=== PATIENT | female | born 1995 | race Caucasian/White ===

== ENCOUNTER 2019-10-23 22:00 | Emergency (ER) | payer MEDICAID, SELFPAY ==
[2019-10-23 22:21] VITALS: BP 142/85; PULSE 104; RESP 18; TEMP 36.8; O2SAT 99; BMI 23.3
--- NOTE | 2019-10-23 22:37 | ED_ITS ---
HPI - Abdominal Pain General: Chief Complaint: Abdominal Pain Stated Complaint: painful urination Time Seen by Provider: 10/23/19 22:29 Source: patient Mode of arrival: ambulatory Limitations: no limitations History of Present Illness: HPI narrative: 24-year-old female who states she has had suprapubic pain along with dysuria over the last 3 days. She states it is gradually worsened. She has a history of UTIs but states her pain is worsened than her typical UTI. She denies any vomiting but has had nausea. Denies fever. MD elicited complaint: abdominal pain Pertinent past history: none Onset (ago): day(s) Pain Consistency: constant Location: Periumbilical Severity: moderate Quality: stabbing Radiation: none Exacerbating factors: nothing Relieving factors: nothing Associated Symptoms: Reports dysuria and nausea; Denies chills, diarrhea, fever(s) and vomiting Related Data: Date of Last Menstrual Period: 10/16/19 Review of Systems Const: Denies: fever(s), chills, body aches or change in appetite Eyes: Denies: blurry vision or eye discomfort ENMT: Denies: throat pain or dental pain Card: Denies: chest pain Resp: Denies: dyspnea GI: Reports: abdominal pain and nausea; Denies: vomiting or diarrhea : Reports: dysuria Musc: Denies: neck pain or back pain Skin/Breast: Denies: rash Neuro: Denies: headache(s) Psych: Denies: depression Seth/Lymph: Denies: easy bruising All/Imm: Denies: urticaria PFSH ED PFSH: Social History Smoking and tobacco status: never smoked Female Reproductive History: Date of last menstrual period: 10/16/19 Physical Exam Const: COMMON NORMALS: no acute distress, patient oriented x3 and healthy appearing HENMT: COMMON NORMALS: normocephalic and atraumatic HEAD & SCALP: normocephalic and atraumatic Eye: COMMON NORMALS: Equal, round and reactive pupils present and EOMs intact bilaterally PUPIL: Yes Equal, round and reactive pupils present Neck/C-Spine: COMMON NORMALS: full ROM and supple Chest: COMMONS NORMALS: normal inspection of the chest and normal palpation of entire chest wall Resp: COMMON NORMALS: normal respiratory effort, No retractions, No use of accessory muscles and clear to auscultation bilaterally AUSCULTATION: clear to auscultation bilaterally Cardio: COMMON NORMALS: regular rate, regular rhythm and No murmurs present (Cardio) RATE: regular rate RHYTHM: regular rhythm GI: COMMON NORMALS: Normal to inspection, nondistended, normoactive bowel sounds present, Soft to palpation and no masses PALPATION: Yes Soft to palpation and Yes Tenderness to palpation present (GI) Details: LLQ and RLQ Extremity: COMMON NORMALS: normal to inspection and full ROM Neuro: COMMON NORMALS: patient oriented x3, moves all extremities and no focal motor deficits Psych: COMMON NORMALS: mental status grossly normal, Normal thought process present and cooperative THOUGHT PROCESS: Normal thought process present Skin: COMMON NORMALS: no rashes or lesions noted and no wounds GENERAL SKIN EXAM: no rashes or lesions noted Course Vital Signs: Vital signs: Vital Signs Temperature 98.3 F 10/23/19 22:21 Pulse Rate 111 H 10/24/19 01:00 Respiratory Rate 17 10/24/19 01:00 Blood Pressure 111/67 10/24/19 01:00 Pulse Oximetry 98 10/24/19 01:00 MDM - Abdominal Pain MDM Narrative: Medical decision making narrative: Patient presents here with abdominal pain likely from urinary tract infection. Patient CT scan here is normal and she has no signs of PID. Patient's pain is improved and her lab work is normal. We will place her on antibiotics and she is stable for discharge. Is to follow-up with primary care doctor in 3 to 5 days return if worsening. Lab Data: Labs: Lab Results 10/23/19 10/23/19 10/23/19 Range/Units 22:19 22:19 22:42 WBC 12.0 H (4.0-10.0) 10^3/ uL RBC 4.29 (4.1-5.3) 10^6/u L Hgb 13.4 (11.5-15.3) g/dL Hct 40.2 (37.0-47.0) % MCV 93.7 (81-99) fL MCH 31.2 (28.0-34.0) pg MCHC 33.3 (30.0-36.0) g/dL RDW 11.7 L (12.1-15.1) % Plt Count 211 (130-400) 10^3/c mm MPV 10.7 H (7.4-10.4) fL Neut % (Auto) 62.5 % Lymph % (Auto) 27.4 % Bulloch % (Auto) 8.4 % Eos % (Auto) 1.1 % Baso % (Auto) 0.3 % Neut # (Auto) 7.5 (1.8-7.7) 10^3/u L Lymph # (Auto) 3.3 (0.8-4.8) 10^3/u L Bulloch # (Auto) 1.0 H (0.2-0.9) 10^3/u L Eos # (Auto) 0.1 (0.0-0.8) 10^3/u L Baso # (Auto) 0.0 (0.0-0.1) 10^3/u L Nucleated RBC % (a uto) 0 % Nucleated RBCs # 0.0 /100WBC Sodium (136-145) mmol/L Potassium (3.5-5.1) mmol/L Chloride (98-107) mmol/L Carbon Dioxide (22-29) mmol/L Anion Gap (5-19) BUN (6-20) mg/dL Creatinine (0.5-0.9) mg/dL GFR Calculation (90-130) mL/min Glucose (65-115) mg/dL Calculated Osmolal ity (285-295) mOsm/k g Calcium (8.5-10.5) mg/dL Total Bilirubin (0.15-1.2) mg/dL AST (0-32) U/L ALT (0-33) U/L Alkaline Phosphata se (35-105) IU/L Total Protein (6.6-8.7) g/dL Albumin (3.5-5.2) g/dL Globulin (1.3-4.6) g/dL Lipase (13-60) U/L HCG, Qual Negative (Negative) Urine Color Jenkins (Yellow) Urine Appearance Clear (CLEAR) Urine pH TNP Ur Specific Gravit y TNP Urine Protein TNP Urine Glucose (UA) TNP Urine Ketones TNP Urine Blood TNP Urine Nitrate TNP Urine Bilirubin TNP Urine Urobilinogen TNP Ur Leukocyte Nitza ase TNP Urine RBC 0-4 H (0-2) /hpf Urine WBC 25-40 H (0-5) /hpf Ur Squamous Epith Cells 0-4 H (0-5) Ur Transition Epit h Cell None /hpf Amorphous Sediment Not Reportable Urine Bacteria Trace (NONE) 10/23/19 Range/Units 22:42 WBC (4.0-10.0) 10^3/ uL RBC (4.1-5.3) 10^6/u L Hgb (11.5-15.3) g/dL Hct (37.0-47.0) % MCV (81-99) fL MCH (28.0-34.0) pg MCHC (30.0-36.0) g/dL RDW (12.1-15.1) % Plt Count (130-400) 10^3/c mm MPV (7.4-10.4) fL Neut % (Auto) % Lymph % (Auto) % Bulloch % (Auto) % Eos % (Auto) % Baso % (Auto) % Neut # (Auto) (1.8-7.7) 10^3/u L Lymph # (Auto) (0.8-4.8) 10^3/u L Bulloch # (Auto) (0.2-0.9) 10^3/u L Eos # (Auto) (0.0-0.8) 10^3/u L Baso # (Auto) (0.0-0.1) 10^3/u L Nucleated RBC % (a uto) % Nucleated RBCs # /100WBC Sodium 141 (136-145) mmol/L Potassium 3.4 L (3.5-5.1) mmol/L Chloride 103 (98-107) mmol/L Carbon Dioxide 25 (22-29) mmol/L Anion Gap 16.4 (5-19) BUN 7 (6-20) mg/dL Creatinine 0.7 (0.5-0.9) mg/dL GFR Calculation 103.7 (90-130) mL/min Glucose 91 (65-115) mg/dL Calculated Osmolal ity 287 (285-295) mOsm/k g Calcium 8.8 (8.5-10.5) mg/dL Total Bilirubin 0.3 (0.15-1.2) mg/dL AST 20 (0-32) U/L ALT 15 (0-33) U/L Alkaline Phosphata se 91 (35-105) IU/L Total Protein 6.8 (6.6-8.7) g/dL Albumin 4.5 (3.5-5.2) g/dL Globulin 2.3 (1.3-4.6) g/dL Lipase 19 (13-60) U/L HCG, Qual (Negative) Urine Color (Yellow) Urine Appearance (CLEAR) Urine pH Ur Specific Gravit y Urine Protein Urine Glucose (UA) Urine Ketones Urine Blood Urine Nitrate Urine Bilirubin Urine Urobilinogen Ur Leukocyte Nitza ase Urine RBC (0-2) /hpf Urine WBC (0-5) /hpf Ur Squamous Epith Cells (0-5) Ur Transition Epit h Cell /hpf Amorphous Sediment Urine Bacteria (NONE) Imaging Data ^: CT Abd/Pel: Attestation: I personally reviewed and interpreted this imaging study as follows: Radiologist's impression: [address] [address] [address] Scan Report Signed Patient: Valerie Cardenas Unit #: [id number] : 1995 Age/Sex: 24 / F ADM Date: 10/23/19 Loc: ER Room/Bed: Attending Dr: Ordering Provider/Ordering MD: Roney Molina MD Date of Service: 10/23/19 Procedure(s): CT abdomen pelvis w con* [id number] Accession Number(s): [id number] Report Number: [id number] PROCEDURE INFORMATION: Exam: CT Abdomen And Pelvis With Contrast Exam date and time: 10/23/2019 10:48 PM Age: 24 years old Clinical indication: Abdominal pain; Localized; Lower; Prior surgery; Surgery type: Colon; Patient HX: Pelvic pain with dysuria x 3 days; Additional info: Abd pain TECHNIQUE: Imaging protocol: Computed tomography of the abdomen and pelvis with intravenous contrast. Radiation optimization: All CT scans at this facility use at least one of these dose optimization techniques: automated exposure control; mA and/or kV adjustment per patient size (includes targeted exams where dose is matched to clinical indication); or iterative reconstruction. Contrast material: OMNI 300; Contrast volume: 75 ml; Contrast route: 20G; COMPARISON: No relevant prior studies available. RADIATION DOSE METRICS: Total DLP: 582.29 mGy-cm FINDINGS: Liver: Unremarkable. Gallbladder and bile ducts: Unremarkable. Pancreas: Unremarkable. Spleen: Unremarkable. Adrenals: Unremarkable. Kidneys and ureters: Unremarkable. No hydronephrosis. Stomach and bowel: No bowel obstruction identified. No diverticulitis identified. Appendix: The appendix is not visualized as a separate structure. No findings to suggest appendicitis. Intraperitoneal space: No free intraperitoneal air identified. Trace free fluid in the pelvis, which may be physiologic. Vasculature: No abdominal aortic aneurysm. Lymph nodes: Unremarkable. Bladder: Unremarkable as visualized. Reproductive: Unremarkable as visualized. Bones/joints: Unremarkable. No acute fracture. Soft tissues: Unremarkable. CT/CT abdomen pelvis w con* [id number] IMPRESSION: 1. No acute intra-abdominal/intrapelvic process identified. Discharge Plan Discharge Patient Disposition: Home, Self-Care Clinical Impression: Acute cystitis Qualifiers: Hematuria presence: without hematuria Qualified Code(s): N30.00 - Acute cystitis without hematuria Condition: Stable Prescriptions: [place] 5-325 mg tablet 1 tab PO Q6H PRN (Reason: pain) Qty: 10 RF: 0 Zofran 4 mg tablet 4 mg PO QID PRN (Reason: nausea and vomiting) Qty: 14 RF: 0 Keflex 500 mg capsule 500 mg PO Q6H 7 Days Qty: 28 RF: 0 Discharge Orders: Discharge Order (Routine); Ordered 10/24/19 Ordered By: Roney Molina Referrals: Mike Levine FNP [Nurse Practitioner] - Discharge Diet: Advance as tolerated Discharge Activity: Resume usual activity Patient Instructions: Urinary Tract Infection in Women (ED) Discharge Date/Time: 10/24/19 01:04 Coding Level of Care Code ED Allergy And Immunology Specialist for Chg Fwd Exam Comprehensive
[2019-10-23 22:47] LABS: Basophils % 0.3 %; Eosinophils # 0.1 10^3/uL (0.0-0.8); Eosinophils % 1.1 %; Hematocrit 40.2 % (37.0-47.0); Hemoglobin 13.4 g/dL (11.5-15.3); Lymphocytes # 3.3 10^3/uL (0.8-4.8); Lymphocytes % 27.4 %; Mean Corpuscular HGB Conc 33.3 g/dL (30.0-36.0); Mean Corpuscular Hemoglobin 31.2 pg (28.0-34.0); Mean Corpuscular Volume 93.7 fL (81-99); Mean Platelet Volume 10.7 fL (7.4-10.4); Monocytes % 8.4 %; Neutrophils # 7.5 10^3/uL (1.8-7.7); Neutrophils % 62.5 %; Nucleated Red Blood Cells % 0 %; Platelet Count 211 10^3/cmm (130-400); Red Blood Count 4.29 10^6/uL (4.1-5.3); Red Cell Distribution Width 11.7 % (12.1-15.1)
[2019-10-23 22:48] VITALS: RESP 18; O2SAT 100
[2019-10-23] MEDS: HYDROmorphone 1 mg/mL INJ 1 mL IVP (22:48)
[2019-10-23] MEDS: ondansetron 2 mg/ML SDV 2 mL 4 MG IVP (22:48)
[2019-10-23] MEDS: sodium chloride 0.9% 1,000 ML 999 ML IV (22:54)
--- NOTE | 2019-10-23 22:58 | PC.NURSE ---
patient states her symptoms started two days ago and today have gotten worse. Patient states her back, lower abdomen, and vaginal area are very painful. Patient states that she feels a lot of pressure in her abdomen and shooting pains in her groin area. Patient states she has been taking AZO, cranberry, and drinking lots of water.
[2019-10-23 23:01] VITALS: BP 109/65; PULSE 95; RESP 18; O2SAT 99
[2019-10-23 23:01] LABS: Alanine Aminotransferase 15 U/L (0-33); Albumin Level 4.5 g/dL (3.5-5.2); Alkaline Phosphatase 91 IU/L (35-105); Anion Gap 16.4 (5-19); Aspartate Amino Transferase 20 U/L (0-32); Blood Urea Nitrogen 7 mg/dL (6-20); Calcium 8.8 mg/dL (8.5-10.5); Carbon Dioxide 25 mmol/L (22-29); Chloride 103 mmol/L (98-107); Globulin 2.3 g/dL (1.3-4.6); Glomerular Filtration Rate 103.7 mL/min (90-130); Glucose 91 mg/dL (65-115); Lipase 19 U/L (13-60); Osmolality Calculated 287 mOsm/kg (285-295); Potassium 3.4 mmol/L (3.5-5.1); Sodium 141 mmol/L (136-145); Total Bilirubin 0.3 mg/dL (0.15-1.2); Total Protein 6.8 g/dL (6.6-8.7)
[2019-10-23 23:14] LABS: HCG Qualitative Urine. Negative (Negative)
--- NOTE | 2019-10-23 23:32 | PC.NURSE ---
patient to ct
[2019-10-23] MEDS: iohexol 300 mg/mL 100 mL Btl IV (23:37)
--- NOTE | 2019-10-23 23:43 | PC.NURSE ---
patient back from ct
[2019-10-23 23:55] VITALS: BP 119/70; PULSE 96; RESP 18; O2SAT 99
[2019-10-23 23:56] LABS: Urine Appearance Clear (CLEAR); Urine Color Orange (Yellow)
[2019-10-23 23:57] LABS: Add Urine Microscopic? YES
[2019-10-24 00:09] LABS: Bacteria Urine TRACE; RBC Urine 0-4 /hpf (0-2); Squamous Epithelial Cell Urine 0-4 (0-5); WBC Urine 25-40 /hpf (0-5)
[2019-10-24] MEDS: cefTRIAXone 1,000 MG in sodium chloride 0.9% (plus) 50 ML 100 MG IV (00:29)
[2019-10-24] MEDS: LORazepam 2 mg/mL INJ 1 mL 1 MG IVP (00:30)
[2019-10-24 00:31] VITALS: BP 111/70; PULSE 88; RESP 15; O2SAT 100
[2019-10-24 01:00] VITALS: BP 111/67; PULSE 111; RESP 17; O2SAT 98
== END 2019-10-24 01:04 | disposition home or self-care (01) ==
LOC: ER 10-24 00:30
PROVIDERS: Emergency Provider Emergency Medicine
DX: N30.00 Acute cystitis without hematuria (principal)
CPT/HCPCS: 12345; 74177; 80053; 81001; 81025; 83690; 85025; 96365; 96375; 99283; J0696; J1170; J2060; J2405; J7030; Q9967

== ENCOUNTER → 2020-04-06 12:35 | Outpatient (BNVA) | payer MEDICAID, SELFPAY | PROVIDERS: Visit Provider Nurse Practitioner Family | DX: Z20.828 Contact with and (suspected) exposure to other viral communicable diseases (principal); J06.9 Acute upper respiratory infection, unspecified | CPT/HCPCS: 87400; 87635 ==

== ENCOUNTER 2020-04-19 12:49 | Emergency (ER) | payer MEDICAID, SELFPAY ==
[2020-04-19 12:56] VITALS: BP 125/78; PULSE 87; RESP 16; TEMP 36.8; O2SAT 100; BMI 22.8
--- NOTE | 2020-04-19 13:14 | ED_ITS ---
HPI - General: Chief complaint: Vaginal Bleeding Stated complaint: 4 WKS /BLEEDING Time Seen by Provider: 04/19/20 13:05 History of Present Illness: HPI Narrative: Patient is a 25-year-old 3 female that has currently 4 weeks and started having red vaginal bleeding and cramping today. 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 Abdominal pain is in the lower abdomen and is a episodic cramping pain.. Is 4 days late. She is done multiple at home urine test and they were positive yesterday. She denies any fever, chills, emesis, chest pain, dysuria or bowel symptoms. Date of Last Menstrual Period: 03/21/20 Associated symptoms: Reports abdominal pain (Lower abdominal cramping.) and nausea; Deny dysuria, headache(s) or vomiting Review of Systems Const: Denies: fever(s), chills or fatigue Eyes: Denies: change in vision or eye discomfort ENMT: Denies: throat pain, odynophagia, nasal discharge or nasal congestion Card: Denies: chest pain, palpitations, edema, swelling of feet/ankles, dyspnea on exertion or orthopnea Resp: Denies: dyspnea, productive cough or non-productive cough GI: Reports: abdominal pain (Lower abdominal cramping.) and nausea; Denies: vomiting, diarrhea, constipation or hematochezia : Reports: vaginal bleeding; Denies: flank pain, dysuria or hematuria Musc: Denies: neck pain, back pain or extremity swelling Skin/Breast: Denies: rash or new lesions Neuro: Denies: headache(s), numbness in extremities or weakness in extremities PFSH ED PFSH: Social History Smoking and tobacco status: never smoked Alcohol intake: never Substance/Drug Use: never Female Reproductive History: Date of last menstrual period: 03/21/20 Physical Exam Const: COMMON NORMALS: no acute distress, patient oriented x3, healthy appearing and alert GENERAL APPEARANCE: cooperative and comfortable HENMT: COMMON NORMALS: normocephalic HEAD & SCALP: normocephalic MOUTH: Normal oral and palatal mucosa present THROAT: posterior oropharynx normal and uvula midline Neck/C-Spine: COMMON NORMALS: supple GENERAL: Yes normal visual inspection Resp: COMMON NORMALS: normal respiratory effort, No retractions, No use of accessory muscles and clear to auscultation bilaterally EFFORT & INSPECTION: Yes able to speak in complete sentences, No tachypneic, No respiratory distress and No labored AUSCULTATION: clear to auscultation bilaterally Cardio: COMMON NORMALS: regular rate, regular rhythm, S1 normal heart sound present, S2 normal heart sound present, No gallops present (Cardio), No clicks present (Cardio), No murmurs present (Cardio) and Peripheral pulses 2+ throughout RATE: regular rate RHYTHM: regular rhythm HEART SOUNDS: S1 normal heart sound present and S2 normal heart sound present PERIPHERAL PULSES: Peripheral pulses 2+ throughout GI: COMMON NORMALS: Normal to inspection, nondistended, normoactive bowel sounds present, Soft to palpation, non-tender and no masses PALPATION: Yes Soft to palpation : COMMON NORMALS: Yes no CVA tenderness BLADDER/KIDNEY EXAM: Yes no CVA tenderness Back/Pelvis: COMMON NORMALS: no CVA tenderness Extremity: COMMON NORMALS: normal to inspection and no pedal edema Neuro: COMMON NORMALS: patient oriented x3 and moves all extremities SENSORIUM/ORIENTATION: Yes alert Skin: GENERAL SKIN EXAM: dry skin Course Vital Signs: Vital signs: Vital Signs Temperature 98.3 F 04/19/20 12:56 Pulse Rate 78 04/19/20 15:44 Respiratory Rate 18 04/19/20 15:44 Blood Pressure 114/74 04/19/20 15:44 Pulse Oximetry 98 04/19/20 15:44 MDM - OB/Uterine Contractions MDM Narrative: Medical decision making narrative: Patient is a 25-year-old female who comes to the ED after positive home test and now is developing abdominal cramping and vaginal bleeding. Period Is 4 days late. Exam shows a patient in no acute distress or pain. CBC and CMP are unremarkable. Rh type positive and her hCG quantitative was 1.95, she is not . OB ultrasound not performed due to negative hCG. Patient was told this is likely her starting her menstruation and potentially home test was inaccurate or she had a chemical . Patient was discharged and told to follow-up with her OB/gyne doctor in 7 to 10 days. Return to ED precautions given. Patient understood and agreed with plan. Lab Data: Attestation: I reviewed the patient's lab results. Labs: Lab Results 11/17/20 11/17/20 11/17/20 Range/Units 13:16 13:22 13:22 WBC 6.3 (4.0-10.0) 10^3/ uL RBC 4.32 (4.1-5.3) 10^6/u L Hgb 13.5 (11.5-15.3) g/dL Hct 40.8 (37.0-47.0) % MCV 94.4 (81-99) fL MCH 31.3 (28.0-34.0) pg MCHC 33.1 (30.0-36.0) g/dL RDW 11.7 L (12.1-15.1) % Plt Count 234 (130-400) 10^3/c mm MPV 10.3 (7.4-10.4) fL Neut % (Auto) 53.2 % Lymph % (Auto) 36.1 % [place]ink % (Auto) 7.4 % Eos % (Auto) 2.5 % Baso % (Auto) 0.6 % Neut # (Auto) 3.37 (1.8-7.7) 10^3/u L Lymph # (Auto) 2.3 (0.8-4.8) 10^3/u L Spink # (Auto) 0.5 (0.2-0.9) 10^3/u L Eos # (Auto) 0.2 (0.0-0.8) 10^3/u L Baso # (Auto) 0.0 (0.0-0.1) 10^3/u L Nucleated RBC % (a uto) 0 % Nucleated RBCs # 0.0 /100WBC Sodium 138 (136-145) mmol/L Potassium 3.9 (3.5-5.1) mmol/L Chloride 102 (98-107) mmol/L Carbon Dioxide 28 (22-29) mmol/L Anion Gap 11.9 (5-19) BUN 9 (6-20) mg/dL Creatinine 0.7 (0.5-0.9) mg/dL GFR Calculation 102.8 (90-130) mL/min Glucose 88 (65-115) mg/dL Calculated Osmolal ity 284 L (285-295) mOsm/k g Calcium 9.1 (8.5-10.5) mg/dL Total Bilirubin 0.3 (0.15-1.2) mg/dL AST 18 (0-32) U/L ALT 15 (0-33) U/L Alkaline Phosphata se 91 (35-105) IU/L Total Protein 7.2 (6.6-8.7) g/dL Albumin 4.5 (3.5-5.2) g/dL Globulin 2.7 (1.3-4.6) g/dL Ser , Sofiya i-Qnt 1.95 mIU/mL Urine Color Yellow (Yellow) Urine Appearance Sl hazy (CLEAR) Urine pH 6.5 (5-7) Ur Specific Gravit y 1.015 (1.005-1.030) Urine Protein Neg (Negative) Urine Glucose (UA) Norm (Normal) Urine Ketones Negative (Negative) Urine Blood 3+ H (Negative) Urine Nitrate Negative (Negative) Urine Bilirubin Neg (Negative) Urine Urobilinogen Norm (Negative) mg/dL Ur Leukocyte Nitza ase Negative (Negative) Urine RBC >100 H (0-2) /hpf Urine WBC 5-10 H (0-5) /hpf Ur Squamous Epith Cells 5-10 H (0-5) /hpf Amorphous Sediment Not Reportable Urine Bacteria Trace (NONE) /hpf Urine Mucus 1+ /hpf Rho(D) Type 04/19/20 Range/Units 13:22 WBC (4.0-10.0) 10^3/ uL RBC (4.1-5.3) 10^6/u L Hgb (11.5-15.3) g/dL Hct (37.0-47.0) % MCV (81-99) fL MCH (28.0-34.0) pg MCHC (30.0-36.0) g/dL RDW (12.1-15.1) % Plt Count (130-400) 10^3/c mm MPV (7.4-10.4) fL Neut % (Auto) % Lymph % (Auto) % [place] % (Auto) % Eos % (Auto) % Baso % (Auto) % Neut # (Auto) (1.8-7.7) 10^3/u L Lymph # (Auto) (0.8-4.8) 10^3/u L Spink # (Auto) (0.2-0.9) 10^3/u L Eos # (Auto) (0.0-0.8) 10^3/u L Baso # (Auto) (0.0-0.1) 10^3/u L Nucleated RBC % (a uto) % Nucleated RBCs # /100WBC Sodium (136-145) mmol/L Potassium (3.5-5.1) mmol/L Chloride (98-107) mmol/L Carbon Dioxide (22-29) mmol/L Anion Gap (5-19) BUN (6-20) mg/dL Creatinine (0.5-0.9) mg/dL GFR Calculation (90-130) mL/min Glucose (65-115) mg/dL Calculated Osmolal ity (285-295) mOsm/k g Calcium (8.5-10.5) mg/dL Total Bilirubin (0.15-1.2) mg/dL AST (0-32) U/L ALT (0-33) U/L Alkaline Phosphata se (35-105) IU/L Total Protein (6.6-8.7) g/dL Albumin (3.5-5.2) g/dL Globulin (1.3-4.6) g/dL Ser , Sofiya i-Qnt mIU/mL Urine Color (Yellow) Urine Appearance (CLEAR) Urine pH (5-7) Ur Specific Gravit y (1.005-1.030) Urine Protein (Negative) Urine Glucose (UA) (Normal) Urine Ketones (Negative) Urine Blood (Negative) Urine Nitrate (Negative) Urine Bilirubin (Negative) Urine Urobilinogen (Negative) mg/dL Ur Leukocyte Nitza ase (Negative) Urine RBC (0-2) /hpf Urine WBC (0-5) /hpf Ur Squamous Epith Cells (0-5) /hpf Amorphous Sediment Urine Bacteria (NONE) /hpf Urine Mucus /hpf Rho(D) Type Positive Discharge Plan Discharge Patient Disposition: Home Clinical Impression: Vaginal bleeding, Negative test Condition: Stable Prescriptions: No Action 1 tab PO DAILY RF: 0 Probiotic 1 cap PO DAILY RF: 0 Discharge Orders: Discharge Order (Routine); Ordered 04/19/20 Ordered By: Georges Avila Discharge Diet: Regular Discharge Activity: Increase activity as tolerated Activity Restrictions/Additional Instructions: Follow-up with medical provider as directed. Contact septic cleaner doctor appointment within the next 7 to 10 days for reevaluation. return to the ER or your medical provider if worsening symptoms such as heavy abnormal bleeding, increased abdominal pain, vomiting or fever. Please read and understand discharge instructions. If any questions, please ask. Coding Level of Care Code ED Hotel Maintenance Technician for Chg Fwd Exam Comprehensive
[2020-04-19 13:29] LABS: Basophils % 0.6 %; Eosinophils # 0.2 10^3/uL (0.0-0.8); Eosinophils % 2.5 %; Hematocrit 40.8 % (37.0-47.0); Hemoglobin 13.5 g/dL (11.5-15.3); Lymphocytes # 2.3 10^3/uL (0.8-4.8); Lymphocytes % 36.1 %; Mean Corpuscular HGB Conc 33.1 g/dL (30.0-36.0); Mean Corpuscular Hemoglobin 31.3 pg (28.0-34.0); Mean Corpuscular Volume 94.4 fL (81-99); Mean Platelet Volume 10.3 fL (7.4-10.4); Monocytes # 0.5 10^3/uL (0.2-0.9); Monocytes % 7.4 %; Neutrophils # 3.37 10^3/uL (1.8-7.7); Neutrophils % 53.2 %; Nucleated Red Blood Cells % 0 %; Platelet Count 234 10^3/cmm (130-400); Red Blood Count 4.32 10^6/uL (4.1-5.3); Red Cell Distribution Width 11.7 % (12.1-15.1); White Blood Count 6.3 10^3/uL (4.0-10.0)
[2020-04-19 13:55] LABS: Alanine Aminotransferase 15 U/L (0-33); Albumin Level 4.5 g/dL (3.5-5.2); Alkaline Phosphatase 91 IU/L (35-105); Anion Gap 11.9 (5-19); Aspartate Amino Transferase 18 U/L (0-32); Blood Urea Nitrogen 9 mg/dL (6-20); Calcium 9.1 mg/dL (8.5-10.5); Carbon Dioxide 28 mmol/L (22-29); Chloride 102 mmol/L (98-107); Globulin 2.7 g/dL (1.3-4.6); Glomerular Filtration Rate 102.8 mL/min (90-130); Glucose 88 mg/dL (65-115); Osmolality Calculated 284 mOsm/kg (285-295); Potassium 3.9 mmol/L (3.5-5.1); Sodium 138 mmol/L (136-145); Total Bilirubin 0.3 mg/dL (0.15-1.2); Total Protein 7.2 g/dL (6.6-8.7)
[2020-04-19 13:55] LABS: Bilirubin Urine Neg (Negative); Blood Urine 3+ (Negative); Glucose Urine UA Norm (Normal); Ketones Urine Negative (Negative); Leukocyte Esterase Urine Negative (Negative); Nitrate Urine Negative (Negative); Protein Urine Neg (Negative); Specific Gravity, Urine 1.015 (1.005-1.030); Urine Appearance SL Hazy (CLEAR); Urine Color Yellow (Yellow); Urobilinogen Urine Norm (Negative); pH Urine 6.5 (5-7)
[2020-04-19 13:56] LABS: Add Urine Culture? Yes; Bacteria Urine TRACE /hpf; Mucus Urine 1+ /hpf; RBC Urine >100 /hpf (0-2)
[2020-04-19 14:49] LABS: HCG Quantitative 1.95 mIU/mL
[2020-04-19 15:44] VITALS: BP 114/74; PULSE 78; RESP 18; O2SAT 98
== END 2020-04-19 15:47 | disposition home or self-care (01) ==
PROVIDERS: Emergency Provider Physician Assistant
DX: N93.9 Abnormal uterine and vaginal bleeding, unspecified (principal)
CPT/HCPCS: 12345; 80053; 81001; 84702; 85025; 87086; 99281; 99282